=== PATIENT | male | born 2000 | race Caucasian/White ===

== ENCOUNTER 2018-01-17 03:54 | Emergency (ER) | payer OTHER ==
[2018-01-17] MEDS ORDERED: NORMAL SALINE 1000 ML 1,000 ML IV ONE (04:21)
--- NOTE | 2018-01-17 04:46 | ER Document Report ---
ED General - General Chief Complaint: Anxiety Stated Complaint: ARM/LEG CRAMPING Time Seen by Provider: 01/17/18 04:08 - Related Data Allergies/Adverse Reactions: bee sting Allergy (Uncoded 01/17/18 03:57) Past Medical History - Social History Smoking Status: Never Smoker Patient has suicidal ideation: No Patient has homicidal ideation: No Renal/ Medical History: Denies: Hx Peritoneal Dialysis Physical Exam - Vital signs Vitals: Temp Pulse Resp BP Pulse Ox 98.0 F 65 20 133/72 H 98 01/17/18 04:01 01/17/18 04:01 01/17/18 04:01 01/17/18 04:01 01/17/18 04:01 Course - Vital Signs Vital signs: Temp Pulse Resp BP Pulse Ox 98.0 F 65 20 133/72 H 98 01/17/18 04:01 01/17/18 04:01 01/17/18 04:01 01/17/18 04:01 01/17/18 04:01 - Laboratory Result Diagrams: 01/17/18 04:39 - EKG Interpretation by Me Additional EKG results interpreted by me: 01/17/18 04:45 01/17/18 04:48 Discharge - Discharge Instructions: Anxiety ([facility])
--- NOTE | 2018-01-17 04:48 | ER Document Report ---
ED General - General Chief Complaint: Anxiety Stated Complaint: ARM/LEG CRAMPING Time Seen by Provider: 01/17/18 04:08 Notes: Patient is a pleasant 17-year-old male who presents with complaint of cramping and spasming that he woke up with in his left arm. He says his left hand was cramped in almost like cough. He also had spasming into his right leg and his foot was cramped as well. The symptoms have since gone away but he feels as if they could come back. He does admit to history of anxiety but is unsure if that is what is causing this. He does work on a regular basis and does take workout supplements. He says he tends to drink water. He denies being outside in heat. He says he used to take creatinine but stopped approximately 10 days ago. No vomiting. No fevers. No recent trauma or injuries. No other complaints at this time. - Related Data Allergies/Adverse Reactions: bee sting Allergy (Uncoded 01/17/18 03:57) Past Medical History - Social History Smoking Status: Never Smoker Frequency of alcohol use: None Drug Abuse: None Family History: Reviewed & Not Pertinent Patient has suicidal ideation: No Patient has homicidal ideation: No Renal/ Medical History: Denies: Hx Peritoneal Dialysis Review of Systems - Review of Systems Notes: My Normal Review Basic REVIEW OF SYSTEMS: CONSTITUTIONAL : Denies fever, chills, or sweats. Denies recent illness. EENT: Denies eye, ear, throat, or mouth pain or symptoms. Denies nasal or sinus congestion. CARDIOVASCULAR: Mild chest pain which has since resolved. RESPIRATORY: Denies cough, cold, or chest congestion. Denies shortness of breath, difficulty breathing, or wheezing. GASTROINTESTINAL: Denies abdominal pain. Denies nausea, vomiting, or diarrhea. Denies constipation. Last BM: MUSCULOSKELETAL: Muscle cramp SKIN: Denies rash or skin lesions. NEUROLOGICAL: Denies altered mental status or loss of consciousness. Denies sensory or motor loss. PSYCHIATRIC: Some stress. ALL OTHER SYSTEMS REVIEWED AND NEGATIVE. Physical Exam - Vital signs Vitals: Temp Pulse Resp BP Pulse Ox 98.0 F 65 20 133/72 H 98 01/17/18 04:01 01/17/18 04:01 01/17/18 04:01 01/17/18 04:01 01/17/18 04:01 - Notes Notes: General Appearance: Well nourished, alert, cooperative, no acute distress, no obvious discomfort. Well-appearing. Vitals: reviewed, See vital signs table. Eyes: PERRL, EOMI, Conjuctiva clear Mouth: No decreasd moisture Lungs: No wheezing, No rales, No rhonci, No accessory muscle use, good air exchange bilaterally. Heart: Normal rate, Regular rythm, No murmur, no rub Abdomen: Normal BS, soft, No rigidity, No abdominal tenderness, No guarding, no rebound, Extremities: strength 5/5 in all extremities, good pulses in all extremities, no swelling or tenderness in the extremities, no edema. Skin: warm, dry, appropriate color, no rash Neuro: speech clear, oriented x 3, normal affect, responds appropriately to questions. Course - Vital Signs Vital signs: Temp Pulse Resp BP Pulse Ox 98.0 F 65 20 133/72 H 98 01/17/18 04:01 01/17/18 04:01 01/17/18 04:01 01/17/18 04:01 01/17/18 04:01 - Laboratory Result Diagrams: 01/17/18 04:39 Laboratory results interpreted by me: 01/17/18 04:39 Sodium 146.9 H - EKG Interpretation by Me Additional EKG results interpreted by me: 01/17/18 04:48 EKG is reviewed and interpreted by me. EKG shows sinus rhythm with rate [address] segment elevation or depression. No ischemic T-wave inversions. MS interval, QRS duration, QTc intervals are within normal range. No old EKG available for comparison. Discharge - Discharge Clinical Impression: Muscle cramps Condition: Good Disposition: HOME, SELF-CARE Additional Instructions: Please be sure to drink lots of water when taking workout supplements. Please return to the ER immediately if you have intractable muscle cramping, fevers, vomiting, or feel unwell.
[2018-01-17 05:03] LABS: ANION GAP 14 (5-19); BLOOD UREA NITROGEN 12 mg/dL (7-20); CALCIUM 9.6 mg/dL (8.4-10.2); CARBON DIOXIDE 27 mmol/L (22-30); CHLORIDE 106 mmol/L (98-107); GLUCOSE 93 mg/dL (75-110); SODIUM 146.9 mmol/L (137-145)
[2018-01-17 06:16] VITALS: BP 118/60
--- NOTE | 2018-01-18 22:20 | EKG REPORT ---
SEVERITY:- OTHERWISE NORMAL ECG - SINUS RHYTHM LEFT AXIS DEVIATION ST ELEV, PROBABLE NORMAL EARLY REPOL PATTERN : Confirmed by: Azam Martinez 18-Jan-2018 22:20:00
== END 2018-01-17 06:16 | disposition home or self-care (01) ==
LOC: ER 03:54
DX: R25.2 Cramp and spasm (principal); R07.9 Chest pain, unspecified; Z91.030 Bee allergy status
CPT/HCPCS: 93005; 99283; 96360; 36415; 83735; 80048; 93010; J7030